=== PATIENT | female | born 1950 | race Caucasian/White ===

== ENCOUNTER 2020-09-05 18:39 | Emergency (ER) | payer MEDICARE, OTHER ==
[~2020-09-05] VITALS: Ht 154.9 cm; Wt 79.6 kg
--- NOTE | 2020-09-05 19:05 | NUR ---
THIS IS A 70F THAT COMES IN FOR SOB/ CP WITH EXERTION. PT REPORTS TAKING NITRO TWIST TESTER AND IMPROVED PAIN. PT RESTING ON GURNEY CONNECTED TO ALL MONITORING DENIES NEEDS AT THIS TIME. ERP AT BEDSIDE FOR ASSESSMENT AND POC.
[2020-09-05] MEDS ORDERED: ASPIRIN 81 MG TABLET CHEW ONE (19:08)
--- NOTE | 2020-09-05 19:14 | NUR ---
PT MEDICATED PER AUG 27 RIGHTS VERIFIED, XRAY AT BEDSIDE
--- NOTE | 2020-09-05 19:26 | NUR ---
LAB AT BEDSIDE FOR DRAW AT THIS TIME
[2020-09-05] MEDS ORDERED: ASPIRIN 81 MG TABLET CHEW PO ONE (19:30)
[2020-09-05 19:44] LABS: BASOPHILS % (AUTO) 1 % (0-1); EOSINOPHILS % (AUTO) 3 % (1-7); LYMPHOCYTES % (AUTO) 34 % (22-44); MEAN PLATELET VOLUME 7.6 fL (7.4-10.4); MONOCYTES % (AUTO) 8 % (2-9); NEUTROPHILS % (AUTO) 54 % (42-75); PLATELET COUNT 249 x10^3/uL (130-400); RED BLOOD COUNT 4.27 x10^6/uL (3.82-5.3); RED CELL DISTRIBUTION WIDTH 12.8 % (9.6-15.2)
[2020-09-05 19:45] LABS: MD NO
[2020-09-05 19:50] LABS: ALANINE AMINOTRANSFERASE 31 U/L (12-78); ALBUMIN 3.8 g/dL (3.4-5.0); ANION GAP 8 mmol/L (5-15); CALCIUM 8.9 mg/dL (8.5-10.1); CHLORIDE 112 mmol/L (98-107); CREATININE 0.54 mg/dL (0.55-1.02)
[2020-09-05 19:55] LABS: ALKALINE PHOSPHATASE 105 U/L (45-117); BILIRUBIN,TOTAL 0.2 mg/dL (0.2-1.0); TOTAL PROTEIN 6.9 g/dL (6.4-8.2); TROPONIN I < 0.015 ng/mL (0.000-0.045)
[2020-09-05 20:07] VITALS: BP 125/50
--- NOTE | 2020-09-05 20:07 | NUR ---
PT RESTING ON GURNEY DENIES NEEDS AT THIS TIME
--- NOTE | 2020-09-05 20:08 | NUR ---
ALL RESULTS BACK CHART UP FOR RECHECK
--- NOTE | 2020-09-05 20:12 | NUR ---
ERP AT BEDSIDE FOR RCK AND POC
--- NOTE | 2020-09-05 20:30 | NUR ---
Patient/Caregiver given discharge instructions and they have confirmed that they understand the instructions. Patient ambulatory with steady gait.
== END 2020-09-05 20:31 | disposition home or self-care (01) ==
LOC: ED 20:10
DX: R07.89 Other chest pain (principal); R06.00 Dyspnea, unspecified; Z87.891 Personal history of nicotine dependence; R94.31 Abnormal electrocardiogram [ECG] [EKG]
CPT/HCPCS: 36415; 71045; 80053; 84484; 85025; 93005; 99285